=== PATIENT | female | born 1990 | race African-American/Black ===

== ENCOUNTER 2018-11-11 19:20 | Emergency (ER) | payer OTHER, MEDICAID ==
[~2018-11-11] VITALS: Ht 152.4 cm; Wt 48.0 kg
[2018-11-11] MEDS ORDERED: SODIUM CHLORIDE 0.9% 1,000 ML IV ONE (21:32)
[2018-11-11 21:44] LABS: COLOR URINE YELLOW (YELLOW); KETONES URINE TRACE (NEGATIVE); LEUKOCYTE ESTERASE URINE NEGATIVE (NEGATIVE); NITRITE URINE NEGATIVE (NEGATIVE); OCCULT BLOOD URINE TRACE (NEGATIVE); PH URINE 6.5 (4.5-8.0); PROTEIN URINE NEGATIVE (NEGATIVE); SPECIFIC GRAVITY URINE 1.025 (1.005-1.030)
[2018-11-11 21:50] LABS: CLARITY URINE SLIGHTLY HAZY (CLEAR)
[2018-11-11 21:51] LABS: BASOPHILS % 0.4 % (0.0-2.0); EOSINOPHILS % 1.3 % (0.0-5.0); HEMATOCRIT. 33.3 % (36.0-48.0); LYMPHOCYTES % 28.7 % (20.0-50.0); MEAN CORPUSCULAR HEMOGLOBIN 27.3 pg (28.0-32.0); MEAN CORPUSCULAR VOLUME 82.8 fL (81.0-99.0); MEAN PLATELET VOLUME 7.7 fl (7.4-10.4); NEUTROPHILS % 62.6 % (40.0-76.0); PLATELET 254 x1000/uL (130-400); RED BLOOD CELL COUNT 4.02 mill/uL (4.2-5.4); RED CELL DISTRIBUTION WIDTH 12.7 % (11.6-14.6)
[2018-11-11 21:58] LABS: CHLORIDE 106 mEq/L (98-107); INR 1.1; PROTHROMBIN TIME 11.4 sec (9.6-11.0)
[2018-11-11 22:06] LABS: METHADONE URINE SCREEN NEGATIVE (NEGATIVE)
[2018-11-11 22:07] LABS: *AMPHETAMINES SCREEN URINE NEGATIVE (NEGATIVE); *BARBITURATES SCREEN URINE NEGATIVE (NEGATIVE); *BENZODIAZEPINES SCREEN URINE NEGATIVE (NEGATIVE); *COCAINE SCREEN URINE NEGATIVE (NEGATIVE); OPIATES URINE SCREEN NEGATIVE (NEGATIVE); PHENCYCLIDINE URINE SCREEN NEGATIVE (NEGATIVE)
[2018-11-11 22:08] LABS: HCG SCREEN POSITIVE
[2018-11-11 22:10] LABS: CANNABINOID URINE SCREEN PRESUMTIVE POSITIVE (NEGATIVE)
[2018-11-11 22:21] LABS: B-HCG QUANTITATIVE 5877 mIU/mL (<3)
[2018-11-12 01:33] VITALS: BP 88/47
== END 2018-11-12 01:34 | disposition home or self-care (01) ==
LOC: ER 19:20
DX: N93.9 Abnormal uterine and vaginal bleeding, unspecified (principal); Z98.890 Other specified postprocedural states
CPT/HCPCS: 36415; 76801; 76817; 80053; 80305; 81003; 81025; 83690; 84702; 84703; 85025; 85610; 86850; 86900; 86901; 99284; J7030; Z7610

== ENCOUNTER 2025-03-17 22:54 | Emergency (ER) | payer MEDICAID, OTHER ==
[~2025-03-17] VITALS: Ht 167.6 cm; Wt 45.0 kg
[2025-03-17 23:12] VITALS: O2SAT 100
[2025-03-18] MEDS ORDERED: ONDA-239 PO (00:10)
[2025-03-18 00:44] VITALS: BP 90/56; PULSE 80; RESP 18; TEMP 36.8; O2SAT 100
== END 2025-03-18 00:54 | disposition home or self-care (01) ==
LOC: ER 22:54
DX: K52.9 Noninfective gastroenteritis and colitis, unspecified (principal); Z79.899 Other long term (current) drug therapy
CPT/HCPCS: 99283